=== PATIENT | male | born 1995 ===

== ENCOUNTER 2018-06-30 00:22 | Emergency (ER) | payer OTHER ==
[2018-06-30] MEDS ORDERED: NS 1,000 ML IV ONE ×2 (00:40)
[2018-06-30] MEDS ORDERED: ACETAMINOPHEN 500 MG TAB PO ONE (00:41)
[2018-06-30] MEDS ORDERED: IBUPROFEN 800 MG TAB PO ONE (00:41)
--- NOTE | 2018-06-30 00:41 | EDPHY ---
H & P Stated Complaint: flu a + nausea started tamiflu today Time Seen by Provider: 06/30/18 00:41 HPI/ROS: HPI CHIEF COMPLAINT: Nausea and vomiting diagnosed with influenza a yesterday. HISTORY OF PRESENT ILLNESS: 23-year-old male, otherwise healthy with no significant medical history does not take any daily medications presents emergency room with fever and nausea vomiting. Patient states he was at urgent care yesterday and diagnosed with influenza a. He was given a prescription for Tamiflu. Last time he took Tylenol and/or Motrin for fever control was at 1:30 a.m. In the afternoon at urgent care. States since then he has not taken anything. He did take a dose of Tamiflu last night and then vomited shortly after taking it. He took it on empty stomach. He arrives to the emergency room is noted be tachycardic and febrile. However he appears very well nontoxic in no acute distress. Patient did not get his flu shot this year. Past Medical History: Denies medical history Past Surgical History: Denies surgical history Social History: [employer] student. Denies illicit drugs alcohol tobacco. Family History: Noncontributory ROS REVIEW OF SYSTEMS: 10 Systems were reviewed and negative with the exception of the elements mentioned in the history of present illness. Exam Constitutional triage nursing summary reviewed, vital signs reviewed, awake/ alert. Tachycardic, febrile. Eyes normal conjunctivae and sclera, EOMI, PERRLA. HENT normal inspection, atraumatic, moist mucus membranes, no epistaxis, neck supple/ no meningismus, no raccoon eyes. Respiratory clear to auscultation bilaterally, normal breath sounds, no respiratory distress, no wheezing. Cardiovascular tachycardic, regular rhythm, no murmur, no edema, distal pulses normal. Gastrointestinal soft, non-tender, no rebound, no guarding, normal bowel sounds, no distension, no pulsatile mass. Genitourinary no CVA tenderness. Musculoskeletal no midline vertebral tenderness, full range of motion, no calf swelling, no tenderness of extremities, no meningismus, good pulses, neurovascularly intact. Skin pink, warm, & dry, no rash, skin atraumatic. Neurologic awake, alert and oriented x 3, AAOx3, moves all 4 extremities equally, motor intact, sensory intact, CN II-XII intact, normal cerebellar, normal vision, normal speech. Psychiatric normal mood/affect. Heme/Lymph/Immune no lymphadenopathy. Differential Diagnosis: Includes but is not limited to in a particular order dehydration, influenza, electrolyte disturbance, acute febrile illness Medical Decision Making: Plan for this patient IV establishment 2 L of normal saline, Tylenol and Motrin for fever control. Zofran for nausea. And re- evaluate. Re-evaluation: [id number]: Patient re-evaluated this time resting comfortably feels much better. Patient resting comfortably no acute distress. Denies shortness of breath or chest pain. Vital signs are stable. Current heart rate 98, blood pressure 131/ 69, pulse ox 92% room air. Afebrile. Patient feels comfortable going home. Return precautions discussed the patient understands return emergency develops worsening fever, vomiting, not doing well Stay well-hydrated Alternate Tylenol and Motrin Tamiflu as previously prescribed Return if worse. Source: Patient - Personal History Current Tetanus/Diphtheria Vaccine: Yes Current Tetanus Diphtheria and Acellular Pertussis (TDAP): Yes - Medical/Surgical History Hx Asthma: No Hx Chronic Respiratory Disease: No Hx Diabetes: No Hx Cardiac Disease: No Hx Renal Disease: No Hx Cirrhosis: No Hx Alcoholism: No Hx HIV/AIDS: No Hx Splenectomy or Spleen Trauma: No - Social History Smoking Status: Never smoked Constitutional: Initial Vital Signs Temperature (C) 38.3 C H 06/30/18 00:33 Heart Rate 129 H 06/30/18 00:33 Respiratory Rate 18 06/30/18 00:33 Blood Pressure 138/91 H 06/30/18 00:33 O2 Sat (%) 93 06/30/18 00:33 O2 Delivery Mode Room Air Allergies/Adverse Reactions: No Known Allergies Allergy (Unverified 06/30/18 00:33) Home Medications: Medication Instructions Recorded Oseltamivir Phosphate [Tamiflu 75 06/30/18 mg (*)] Medical Decision Making - Data Points Laboratory Results: Laboratory Results 06/30/18 00:50 06/30/18 00:50 06/30/18 06/30/18 00:50 00:50 WBC 6.57 10^3/uL 10^3/uL (3.80-9.50) RBC 5.39 10^6/uL 10^6/uL (4.40-6.38) Hgb 15.4 g/dL g/dL (13.7-17.5) Hct 44.8 % % (40.0-51.0) MCV 83.1 fL fL (81.5-99.8) MCH 28.6 pg pg (27.9-34.1) MCHC 34.4 g/dL g/dL (32.4-36.7) RDW 12.0 % % (11.5-15.2) Plt Count 159 10^3/uL 10^3/uL (150-400) MPV 9.5 fL fL (8.7-11.7) Neut % (Auto) 75.7 % H % (39.3-74.2) Lymph % (Auto) 11.4 % L % (15.0-45.0) [place] % (Auto) 12.2 % % (4.5-13.0) Eos % (Auto) 0.0 % L % (0.6-7.6) Baso % (Auto) 0.2 % L % (0.3-1.7) Nucleat RBC Rel Count 0.0 % % (0.0-0.2) Absolute Neuts (auto) 4.98 10^3/uL 10^3/uL (1.70-6.50) Absolute Lymphs (auto) 0.75 10^3/uL L 10^3/uL (1.00-3.00) Absolute Monos (auto) 0.80 10^3/uL 10^3/uL (0.30-0.80) Absolute Eos (auto) 0.00 10^3/uL L 10^3/uL (0.03-0.40) Absolute Basos (auto) 0.01 10^3/uL L 10^3/uL (0.02-0.10) Absolute Nucleated RBC 0.00 10^3/uL 10^3/uL (0-0.01) Immature Gran % 0.5 % % (0.0-1.1) Immature Gran # 0.03 10^3/uL 10^3/uL (0.00-0.10) Sodium 137 mEq/L mEq/L (135-145) Potassium 3.6 mEq/L mEq/L (3.5-5.2) Chloride 102 mEq/L mEq/L (97-110) Carbon Dioxide 25 mEq/l mEq/l (22-31) Anion Gap 10 mEq/L mEq/L (6-14) BUN 13 mg/dL mg/dL (7-23) Creatinine 1.0 mg/dL mg/dL (0.7-1.3) Estimated GFR > 60 Glucose 110 mg/dL H mg/dL (70-100) Calcium 9.1 mg/dL mg/dL (8.5-10.4) Medications Given: Discontinued Medications Acetaminophen (Tylenol) 1,000 mg PO EDNOW ONE Stop: 06/30/18 00:42 Last Admin: 06/30/18 01:02 Dose: 1,000 mg Sodium Chloride (Ns) 1,000 mls @ 0 mls/hr IV EDNOW ONE; Wide Open PRN Reason: Protocol Stop: 06/30/18 00:41 Last Admin: 06/30/18 00:50 Dose: 1,000 mls Sodium Chloride (Ns) 1,000 mls @ 0 mls/hr IV EDNOW ONE; Wide Open PRN Reason: Protocol Stop: 06/30/18 00:41 Last Admin: 06/30/18 00:51 Dose: 1,000 mls Ibuprofen (Motrin) 800 mg PO EDNOW ONE Stop: 06/30/18 00:42 Last Admin: 06/30/18 01:02 Dose: 800 mg Ondansetron HCl (Zofran) 4 mg IVP EDNOW ONE Stop: 06/30/18 00:47 Last Admin: 06/30/18 00:49 Dose: 4 mg Departure - Departure Disposition: Home, Routine, Self-Care Clinical Impression: Influenza A Fever Qualifiers: Fever type: unspecified Qualified Code(s): R50.9 - Fever, unspecified Condition: Good Instructions: Fever in Adults (ED), Influenza (ED) Additional Instructions: 1. Make sure to drink lots of fluids stay well-hydrated 2. Alternate Tylenol and Motrin every 6-8 hours for fever control. 3. Take her Tamiflu on a full stomach not empty stomach 4. Return to the emergency room if he develops worsening symptoms. Referrals: NONE *PRIMARY CARE P,. [Primary Care Provider] - As per Instructions [facility],. [Clinic] - As per Instructions
[2018-06-30] MEDS ORDERED: ONDANSETRON 4 MG/2 ML VIAL ONE (00:45)
[2018-06-30] MEDS ORDERED: ONDANSETRON 4 MG/2 ML VIAL IVP ONE (00:46)
[2018-06-30 01:06] LABS: PLATELET COUNT 159 10^3/uL (150-400)
[2018-06-30 03:46] VITALS: BP 127/80
== END 2018-06-30 03:46 | disposition home or self-care (01) ==
DX: J10.1 Influenza due to other identified influenza virus with other respiratory manifestations (principal); E86.9 Volume depletion, unspecified
CPT/HCPCS: 96374; J2405